=== PATIENT | female | born 2000 | race American Indian/Alaskan Native ===

== ENCOUNTER 2023-02-14 20:50 | Emergency (ER) | payer MEDICAID | END 2023-02-14 22:37 | disposition home or self-care (01) | LOC: JD.ED 20:50 | DX: S93.401A Sprain of unspecified ligament of right ankle, initial encounter (principal); F17.210 Nicotine dependence, cigarettes, uncomplicated; Z91.013 Allergy to seafood | CPT/HCPCS: 73610-26-RT; 73610-RT; 99283 ==